=== PATIENT | female | born 1995 | race American Indian/Alaskan Native ===

== ENCOUNTER 2019-04-08 11:37 | Emergency (ER) | payer SELFPAY ==
[2019-04-08 11:49] VITALS: BP 153/89; PULSE 80; TEMP 98.2; BMI 28.1
[2019-04-08] MEDS ORDERED: IBUPROFEN 600 MG TABLET (FP) PO ONE ×2 (11:56→12:01)
[2019-04-08] MEDS ORDERED: LIDOCAINE 5% TOPICAL PATCH TP ONE (11:56)
[2019-04-08] MEDS ORDERED: LIDOCAINE 5% TOPICAL PATCH ONE (12:00)
--- NOTE | 2019-04-08 12:03 | PDOC ---
History of Present Illness - General Chief Complaint: Injury Stated Complaint: LOWER BACK PAIN/ RT SIDE HIP PAIN Time Seen by Provider: 04/08/19 11:46 History Source: Patient Exam Limitations: No Limitations Past History - Past Medical History Allergies/Adverse Reactions: Allergies Allergy/AdvReac Type Severity Reaction Status Date / Time No Known Allergies Allergy Verified 04/08/19 11:49 Home Medications: Ambulatory Orders Lidocaine 5% Patch [Lidoderm -] 1 patch TP DAILY #7 patch 04/08/19 COPD: No - Surgical History GI Surgery: No Neurologic Surgery: No - Immunization History Immunization Up to Date: No - Suicide/Smoking/Psychosocial Hx Smoking History: Never smoked Have you smoked in the past 12 months: No Information on smoking cessation initiated: No Hx Alcohol Use: No Drug/Substance Use Hx: No *Physical Exam - Vital Signs Last Vital Signs Temp Pulse Resp BP Pulse Ox 98.2 F 80 18 153/89 98 04/08/19 11:46 04/08/19 11:46 04/08/19 11:46 04/08/19 11:46 04/08/19 11:46 - Physical Exam General Appearance: No: Apparent Distress Respiratory/Chest: positive: Lungs Clear, Normal Breath Sounds. negative: Respiratory Distress Cardiovascular: positive: Regular Rhythm, Regular Rate, S1, S2. negative: Murmur Gastrointestinal/Abdominal: positive: Normal Bowel Sounds, Soft. negative: Tender, Distended, Guarding, Rebound Extremity: positive: Other (+mild TTP above R hip, slight pain with flexion of R hip). negative: Swelling Integumentary: negative: Swelling, Ecchymosis, Bruising Neurologic: positive: Alert, Normal Mood/Affect, Other (ambulatory) Medical Decision Making - Medical Decision Making 24 y/o F with no sig pmh presents s/p trip and fall with pain along R side of body (slightly above R hip). Patient slipped on something and right side of body hit against door handle. Patient did not fall back. No head/neck trauma occurred; denies LOC. Denies back pain, numbness/tingling/weakness of extremities. Patient applied icy hot patch. Did not take any meds prior to coming Unlikely fracture/dislocation Likely muscle strain Plan: Motrin, Lidocaine patch 04/08/19 11:58 *DC/Admit/Observation/Transfer Diagnosis at time of Disposition: Muscle strain Fall Qualifiers: Encounter type: initial encounter Qualified Code(s): W19.XXXA - Unspecified fall, initial encounter - Discharge Dispostion Disposition: HOME Condition at time of disposition: Stable Decision to Admit order: No - Prescriptions Prescriptions: Lidocaine 5% Patch [Lidoderm -] 1 patch TP DAILY #7 patch - Referrals - Patient Instructions Printed Discharge Instructions: DI for Muscle Strain Additional Instructions: Thank you for choosing [facility]. It was a pleasure taking care of you. You may take Motrin 600 mg every 6 hours by mouth as needed for mild to moderate pain. Take Motrin with food. Apply lidocaine patch for 12 hours, then keep off for 12 hours Apply warm compresses Return to the Emergency Department if your symptoms worsen or persist, have numbness/tingling/weakness of extremities or other concerning symptoms. - Post Discharge Activity
== END 2019-04-08 12:26 | disposition home or self-care (01) ==
LOC: JERFT 11:37
DX: T14.8XXA Other injury of unspecified body region, initial encounter (principal); W01.198A Fall on same level from slipping, tripping and stumbling with subsequent striking against other object, initial encounter; Y93.89 Activity, other specified; Y92.9 Unspecified place or not applicable
CPT/HCPCS: 99282-25